=== PATIENT | male | born 1935 | race Caucasian/White ===

== ENCOUNTER 2017-02-09 16:08 | Inpatient (IN) | payer MEDICARE, OTHER ==
[~2017-02-09 16:08] MED LIST: AMARYL4 M1 PO; BIOTENE SSP; COZAAR100 M1 PO; FLOMAX0.4 M1 PO; LOVASTATIN20 M2 PO; LOW DOSE ASPIRI81 M3 PO; MULTIVITAMINS1 EAC6 PO; NORVASC10 M2 PO; PRILOSEC20 M1 PO; TYLENOL EXTRA500 M1 PO; ZYLOPRIM300 M1 PO
[2017-02-09 19:05] LABS: BASO % 0.1 % (0-2); HGB-HEMOGLOBIN 12.2 gm/dl (13.5-17.0); IMMATURE GRANULOCYTES ABSOLUTE 0.04 tho/cmm (0-0.03); IMMATURE GRANULOCYTES PERCENT 0.4 % (0-0.3); LYMPH % 4.4 % (20-45); LYMPH ABSOLUTE COUNT 0.5 tho/cmm (0.8-4.5); MCH (MEAN CORPUSCULAR HGB) 29.3 pg (28.0-32.0); MCV (MEAN CELL VOLUME) 88.9 fl (82.0-96.0); MEAN PLATELET VOLUME 10.5 cmc (9.4-12.4); MONO % 5.8 % (0-12); MONOCYTE ABSOLUTE COUNT 0.6 tho/cmm (0.0-1.2); NEUTROPHILS % 89.3 % (40-80); PLATELET COUNT 131 tho/cmm (150-450); RED BLOOD COUNT 4.16 mil/cmm (4.40-5.70); RED CELL DISTRIBUTION WIDTH 13.5 % (12.4-16.4); WHITE BLOOD COUNT 10.1 tho/cmm (4.0-10.0)
[2017-02-09 19:18] LABS: URINE APPEARANCE SL CLOUDY; URINE BILIRUBIN NEGATIVE (NEG); URINE BLOOD LARGE (NEG); URINE COLOR YELLOW; URINE GLUCOSE (UA) NEGATIVE (NEG); URINE KETONE SMALL (NEG); URINE LEUKOCYTE ESTERASE POSITIVE (NEG); URINE NITRITE NEGATIVE (NEG); URINE PROTEIN MODERATE (NEG)
[2017-02-09 19:21] LABS: ALB/GLOB RATIO 0.6 (0.8-2.0); ALBUMIN 2.8 g/dl (3.5-5.0); ALKALINE PHOSPHATASE 89 U/L (33-138); ALT/SGPT 32 U/L (12-78); ANION GAP 16 mmol/L (0-20); AST/SGOT 30 U/L (10-40); BILIRUBIN,TOTAL 0.5 mg/dl (0.0-1.5); BLOOD UREA NITROGEN 37 mg/dl (6-24); CALCIUM 9.2 mg/dl (8.5-10.5); CARBON DIOXIDE-VENOUS 27 mmol/L (22-32); CHLORIDE 95 mmol/l (96-110); CREATININE 1.89 mg/dl (0.60-1.30); GLUCOSE 299 mg/dL (70-110); LIPASE 108 U/L (73-393); POTASSIUM 4.6 mmol/L (3.7-5.1); SODIUM 133 mmol/L (135-145); eGFR VALUE FOR BLACK 38 mL/Min
[2017-02-09 19:28] LABS: URINE WBC 30-40 /[HPF] (0-5)
[2017-02-09] MEDS ORDERED: ALPRAZOLAM0.5 M3 PO (20:24)
[2017-02-09] MEDS ORDERED: HYDROCODON-ACE1 EA16 PO (20:25)
[2017-02-09] MEDS ORDERED: AMOXICILLIN500 M1 PO (20:25)
[2017-02-09] MEDS ORDERED: MUCINEX600 M1 PO (20:25)
[2017-02-09] MEDS ORDERED: MIRALAX17 G2 PO (20:26)
[2017-02-09] MEDS ORDERED: GAVISCON ES TA1 EACH PO (20:28)
--- NOTE | 2017-02-09 22:50 | NUR ---
VIRTUAL CARE NOTE: VS MACHINE ALARMING HR APPEARS IN 140'S, PT. RESP 32-34 AFTER USING THE RESTROOM PRIOR. O2 SAT 85- 87% ROOM AIR. ON UNIT NOTIFIED AND THIS NURSE HELPS EVALUATE PT. CAMPUS AIDE CALLED AT [phone] SEE RAPID RESPONSE SHEET. 2259 M. MERCEDEZ TESFAYE NOTIFED OF PT. JUST BEING ADMITTED AND UP TO THE BR PRIOR AND CURRENT VS. O2 IN PROCESS OF BEING APPLIED . ORDERS RECEIVED INFORMATION GIVEN OF LUNG SOUND DIMINISHED BY RESP STAFF GIVEN. WILL CONTINUE TO MONITOR.
[2017-02-09 23:05] LABS: ABG CO2 ARTERIAL 22 mmol/L (21-27); ARTERIAL BLD GAS O2 SATURATION 93 % (95-98); ARTERIAL BLOOD GAS PCO2 33 mmHg (32-45); ARTERIAL PO2 73 mmHg (70-100); BICARBONATE 21 mmol/L (21-28); BLOOD GAS BASE EXCESS -3 mM/L (-/+3); PH 7.42 Units (7.35-7.45)
[2017-02-09 23:12] LABS: BASO % 0.1 % (0-2); HCT-HEMATOCRIT 35.4 % (36.0-53.5); HGB-HEMOGLOBIN 11.6 gm/dl (13.5-17.0); IMMATURE GRANULOCYTES ABSOLUTE 0.04 tho/cmm (0-0.03); IMMATURE GRANULOCYTES PERCENT 0.4 % (0-0.3); LYMPH % 4.9 % (20-45); LYMPH ABSOLUTE COUNT 0.5 tho/cmm (0.8-4.5); MCH (MEAN CORPUSCULAR HGB) 29.5 pg (28.0-32.0); MCHC MEAN CORPUSCULAR HGB CONC 32.8 % (32.0-36.0); MCV (MEAN CELL VOLUME) 90.1 fl (82.0-96.0); MEAN PLATELET VOLUME 11.4 cmc (9.4-12.4); MONO % 7.7 % (0-12); MONOCYTE ABSOLUTE COUNT 0.8 tho/cmm (0.0-1.2); NEUTROPHIL ABSOLUTE COUNT 9.4 tho/cmm (1.6-8.0); NEUTROPHIL-AUTOMATED 9.4 tho/cmm (1.6-8.0); NEUTROPHILS % 86.9 % (40-80); PLATELET COUNT 137 tho/cmm (150-450); RED BLOOD COUNT 3.93 mil/cmm (4.40-5.70); RED CELL DISTRIBUTION WIDTH 13.6 % (12.4-16.4); WHITE BLOOD COUNT 10.8 tho/cmm (4.0-10.0)
[2017-02-09 23:27] LABS: ALB/GLOB RATIO 0.6 (0.8-2.0); ALBUMIN 2.8 g/dl (3.5-5.0); ALKALINE PHOSPHATASE 90 U/L (33-138); ALT/SGPT 31 U/L (12-78); ANION GAP 19 mmol/L (0-20); AST/SGOT 32 U/L (10-40); BILIRUBIN,TOTAL 0.5 mg/dl (0.0-1.5); BLOOD UREA NITROGEN 38 mg/dl (6-24); CALCIUM 8.8 mg/dl (8.5-10.5); CARBON DIOXIDE-VENOUS 25 mmol/L (22-32); CHLORIDE 96 mmol/l (96-110); GLUCOSE 265 mg/dL (70-110); POTASSIUM 4.6 mmol/L (3.7-5.1); SODIUM 135 mmol/L (135-145); eGFR VALUE FOR BLACK 38 mL/Min
[2017-02-09 23:38] LABS: AMYLASE 14 U/L (20-90); LIPASE 119 U/L (73-393)
[2017-02-09 23:39] LABS: INR 1.4 INR (0.9-1.1); PROTHROMBIN TIME 16.1 SECONDS (9.0-13.6)
[2017-02-10 00:07] LABS: IRON 17 ug/dl (49-181); IRON BINDING CAPACITY 282 ug/dl (250-450)
[2017-02-10 00:26] LABS: FERRITIN 183 ng/ml (22-388); PROCALCITONIN 12.21 ng/ml (0.05-0.09)
[2017-02-10 04:56] LABS: INR 1.5 INR (0.9-1.1); PROTHROMBIN TIME 17.6 SECONDS (9.0-13.6)
[2017-02-10 05:02] LABS: BASO % 0.1 % (0-2); HCT-HEMATOCRIT 33.1 % (36.0-53.5); HGB-HEMOGLOBIN 10.9 gm/dl (13.5-17.0); IMMATURE GRANULOCYTES ABSOLUTE 0.04 tho/cmm (0-0.03); IMMATURE GRANULOCYTES PERCENT 0.3 % (0-0.3); LYMPH % 2.7 % (20-45); LYMPH ABSOLUTE COUNT 0.3 tho/cmm (0.8-4.5); MCH (MEAN CORPUSCULAR HGB) 29.3 pg (28.0-32.0); MCHC MEAN CORPUSCULAR HGB CONC 32.9 % (32.0-36.0); MEAN PLATELET VOLUME 11.3 cmc (9.4-12.4); MONO % 9.9 % (0-12); MONOCYTE ABSOLUTE COUNT 1.3 tho/cmm (0.0-1.2); NEUTROPHIL ABSOLUTE COUNT 11.1 tho/cmm (1.6-8.0); NEUTROPHIL-AUTOMATED 11.1 tho/cmm (1.6-8.0); PLATELET COUNT 135 tho/cmm (150-450); RED BLOOD COUNT 3.72 mil/cmm (4.40-5.70); RED CELL DISTRIBUTION WIDTH 13.6 % (12.4-16.4); WHITE BLOOD COUNT 12.8 tho/cmm (4.0-10.0)
[2017-02-10 05:09] LABS: ALB/GLOB RATIO 0.6 (0.8-2.0); ALBUMIN 2.7 g/dl (3.5-5.0); ALKALINE PHOSPHATASE 85 U/L (33-138); ANION GAP 18 mmol/L (0-20); BILIRUBIN,TOTAL 0.6 mg/dl (0.0-1.5); BLOOD UREA NITROGEN 45 mg/dl (6-24); CALCIUM 8.4 mg/dl (8.5-10.5); CARBON DIOXIDE-VENOUS 24 mmol/L (22-32); CHLORIDE 98 mmol/l (96-110); CREATININE 2.11 mg/dl (0.60-1.30); GLUCOSE 285 mg/dL (70-110); PARTIAL THROMBOPLASTIN TIME 58 SECONDS (22-36); POTASSIUM 4.5 mmol/L (3.7-5.1); SODIUM 135 mmol/L (135-145); eGFR VALUE FOR BLACK 33 mL/Min
[2017-02-10 05:13] LABS: TSH-THYROID STIMULATING HORM. 1.32 uIU/ml (0.40-3.80)
[2017-02-10 05:27] LABS: ALT/SGPT 144 U/L (12-78); AST/SGOT 278 U/L (10-40)
[2017-02-10 10:07] LABS: OSMOLALITY 298 mOsm/kg (275-295)
[2017-02-10 11:06] LABS: BASO % 0.1 % (0-2); HGB-HEMOGLOBIN 10.7 gm/dl (13.5-17.0); IMMATURE GRANULOCYTES ABSOLUTE 0.04 tho/cmm (0-0.03); IMMATURE GRANULOCYTES PERCENT 0.4 % (0-0.3); LYMPH % 3.3 % (20-45); LYMPH ABSOLUTE COUNT 0.4 tho/cmm (0.8-4.5); MCH (MEAN CORPUSCULAR HGB) 29.7 pg (28.0-32.0); MCHC MEAN CORPUSCULAR HGB CONC 33.4 % (32.0-36.0); MCV (MEAN CELL VOLUME) 88.9 fl (82.0-96.0); MEAN PLATELET VOLUME 11.6 cmc (9.4-12.4); MONO % 9.7 % (0-12); MONOCYTE ABSOLUTE COUNT 1.1 tho/cmm (0.0-1.2); NEUTROPHIL ABSOLUTE COUNT 9.5 tho/cmm (1.6-8.0); NEUTROPHIL-AUTOMATED 9.5 tho/cmm (1.6-8.0); NEUTROPHILS % 86.5 % (40-80); PLATELET COUNT 143 tho/cmm (150-450); RED CELL DISTRIBUTION WIDTH 13.5 % (12.4-16.4)
[2017-02-10 11:27] LABS: ANION GAP 20 mmol/L (0-20); BLOOD UREA NITROGEN 48 mg/dl (6-24); CALCIUM 8.8 mg/dl (8.5-10.5); CARBON DIOXIDE-VENOUS 23 mmol/L (22-32); CHLORIDE 96 mmol/l (96-110); CREATININE 2.46 mg/dl (0.60-1.30); GLUCOSE 229 mg/dL (70-110); POTASSIUM 4.6 mmol/L (3.7-5.1); SODIUM 134 mmol/L (135-145); eGFR VALUE FOR BLACK 28 mL/Min
[2017-02-10 11:34] LABS: ABG CO2 ARTERIAL 17 mmol/L (21-27); ARTERIAL BLD GAS O2 SATURATION 97 % (95-98); ARTERIAL BLOOD GAS PCO2 23 mmHg (32-45); ARTERIAL PO2 94 mmHg (70-100); BICARBONATE 17 mmol/L (21-28); BLOOD GAS BASE EXCESS -6 mM/L (-/+3); PH 7.46 Units (7.35-7.45)
[2017-02-10 13:19] LABS: ABG CO2 ARTERIAL 20 mmol/L (21-27); ARTERIAL BLD GAS O2 SATURATION 89 % (95-98); ARTERIAL BLOOD GAS PCO2 41 mmHg (32-45); ARTERIAL PO2 71 mmHg (70-100); BICARBONATE 19 mmol/L (21-28); BLOOD GAS BASE EXCESS -7 mM/L (-/+3); PH 7.28 Units (7.35-7.45)
[2017-02-10] MEDS ORDERED: METFORMIN HCL500 M3 PO (13:25)
[2017-02-10 13:55] LABS: HCT-HEMATOCRIT 36.5 % (36.0-53.5); HGB-HEMOGLOBIN 11.9 gm/dl (13.5-17.0); MCV (MEAN CELL VOLUME) 89.9 fl (82.0-96.0); RED CELL DISTRIBUTION WIDTH 13.6 % (12.4-16.4)
[2017-02-10 15:55] LABS: INR 1.6 INR (0.9-1.1); PROTHROMBIN TIME 18.9 SECONDS (9.0-13.6)
[2017-02-10 16:01] LABS: ALB/GLOB RATIO 0.6 (0.8-2.0); ALBUMIN 2.6 g/dl (3.5-5.0); ALKALINE PHOSPHATASE 107 U/L (33-138); ANION GAP 19 mmol/L (0-20); BLOOD UREA NITROGEN 56 mg/dl (6-24); CALCIUM 8.3 mg/dl (8.5-10.5); CARBON DIOXIDE-VENOUS 24 mmol/L (22-32); CHLORIDE 93 mmol/l (96-110); CREATININE 2.81 mg/dl (0.60-1.30); PHOSPHOROUS 6.2 mg/dl (2.5-4.9); POTASSIUM 4.7 mmol/L (3.7-5.1); SODIUM 131 mmol/L (135-145); eGFR VALUE FOR BLACK 24 mL/Min
[2017-02-10 16:06] LABS: BILIRUBIN,TOTAL 1.3 mg/dl (0.0-1.5); GLUCOSE 382 mg/dL (70-110)
[2017-02-10 16:11] LABS: ALT/SGPT 1846 U/L (12-78); AST/SGOT 3978 U/L (10-40)
[2017-02-11 04:31] LABS: BASO % 0.2 % (0-2); HCT-HEMATOCRIT 38.1 % (36.0-53.5); HGB-HEMOGLOBIN 12.9 gm/dl (13.5-17.0); IMMATURE GRANULOCYTES ABSOLUTE 0.08 tho/cmm (0-0.03); IMMATURE GRANULOCYTES PERCENT 0.6 % (0-0.3); LYMPH % 6.4 % (20-45); LYMPH ABSOLUTE COUNT 0.8 tho/cmm (0.8-4.5); MCH (MEAN CORPUSCULAR HGB) 29.3 pg (28.0-32.0); MCHC MEAN CORPUSCULAR HGB CONC 33.9 % (32.0-36.0); MCV (MEAN CELL VOLUME) 86.6 fl (82.0-96.0); MEAN PLATELET VOLUME 11.8 cmc (9.4-12.4); MONO % 6.3 % (0-12); MONOCYTE ABSOLUTE COUNT 0.8 tho/cmm (0.0-1.2); NEUTROPHIL ABSOLUTE COUNT 11.2 tho/cmm (1.6-8.0); NEUTROPHIL-AUTOMATED 11.2 tho/cmm (1.6-8.0); NEUTROPHILS % 86.5 % (40-80); PLATELET COUNT 208 tho/cmm (150-450); RED CELL DISTRIBUTION WIDTH 13.4 % (12.4-16.4); WHITE BLOOD COUNT 12.9 tho/cmm (4.0-10.0)
[2017-02-11 04:43] LABS: ALB/GLOB RATIO 0.5 (0.8-2.0); ALBUMIN 2.2 g/dl (3.5-5.0); ALKALINE PHOSPHATASE 100 U/L (33-138); ANION GAP 23 mmol/L (0-20); BILIRUBIN,TOTAL 1.2 mg/dl (0.0-1.5); BLOOD UREA NITROGEN 70 mg/dl (6-24); CARBON DIOXIDE-VENOUS 20 mmol/L (22-32); CHLORIDE 94 mmol/l (96-110); POTASSIUM 4.9 mmol/L (3.7-5.1); SODIUM 132 mmol/L (135-145); eGFR VALUE FOR BLACK 15 mL/Min
[2017-02-11 05:29] LABS: CREATININE 4.03 mg/dl (0.60-1.30); GLUCOSE 141 mg/dL (70-110)
[2017-02-11 05:31] LABS: ALT/SGPT 2806 U/L (12-78); AST/SGOT 6259 U/L (10-40)
[2017-02-11 06:15] LABS: ABG CO2 ARTERIAL 19 mmol/L (21-27); ARTERIAL BLD GAS O2 SATURATION 97 % (95-98); BICARBONATE 18 mmol/L (21-28); BLOOD GAS BASE EXCESS -6 mM/L (-/+3); PH 7.38 Units (7.35-7.45)
[2017-02-11 06:16] LABS: ARTERIAL BLOOD GAS PCO2 32 mmHg (32-45); ARTERIAL PO2 117 mmHg (70-100)
[2017-02-11 15:22] LABS: BICARBONATE 20 mmol/L (21-28); BLOOD GAS BASE EXCESS -5 mM/L (-/+3); CARBON DIOXIDE-VENOUS 22 mmol/L (23-30); MIXED VENOUS O2 SATURATION 47 % (60-80); PH 7.32 Units (7.35-7.45)
[2017-02-12 04:42] LABS: BICARBONATE 18 mmol/L (21-28); BLOOD GAS BASE EXCESS -8 mM/L (-/+3); CARBON DIOXIDE-VENOUS 20 mmol/L (23-30); MIXED VENOUS O2 SATURATION 55 % (60-80); PH 7.27 Units (7.35-7.45)
[2017-02-12 04:46] LABS: BASO % 0.2 % (0-2); EOS % 0.2 % (0-7); HCT-HEMATOCRIT 35.3 % (36.0-53.5); HGB-HEMOGLOBIN 12.1 gm/dl (13.5-17.0); IMMATURE GRANULOCYTES ABSOLUTE 0.07 tho/cmm (0-0.03); IMMATURE GRANULOCYTES PERCENT 0.6 % (0-0.3); LYMPH % 5.7 % (20-45); LYMPH ABSOLUTE COUNT 0.7 tho/cmm (0.8-4.5); MCH (MEAN CORPUSCULAR HGB) 29.1 pg (28.0-32.0); MCHC MEAN CORPUSCULAR HGB CONC 34.3 % (32.0-36.0); MCV (MEAN CELL VOLUME) 84.9 fl (82.0-96.0); MEAN PLATELET VOLUME 11.6 cmc (9.4-12.4); MONO % 5.4 % (0-12); MONOCYTE ABSOLUTE COUNT 0.7 tho/cmm (0.0-1.2); NEUTROPHIL ABSOLUTE COUNT 10.6 tho/cmm (1.6-8.0); NEUTROPHIL-AUTOMATED 10.6 tho/cmm (1.6-8.0); NEUTROPHILS % 87.9 % (40-80); PLATELET COUNT 172 tho/cmm (150-450); RED BLOOD COUNT 4.16 mil/cmm (4.40-5.70); RED CELL DISTRIBUTION WIDTH 13.4 % (12.4-16.4)
[2017-02-12 05:05] LABS: PROTHROMBIN TIME 23.3 SECONDS (9.0-13.6)
[2017-02-12 05:08] LABS: ALB/GLOB RATIO 0.6 (0.8-2.0); ALBUMIN 2.4 g/dl (3.5-5.0); ALKALINE PHOSPHATASE 106 U/L (33-138); ANION GAP 23 mmol/L (0-20); BILIRUBIN,TOTAL 1.3 mg/dl (0.0-1.5); BLOOD UREA NITROGEN 97 mg/dl (6-24); CALCIUM 7.2 mg/dl (8.5-10.5); CARBON DIOXIDE-VENOUS 18 mmol/L (22-32); CHLORIDE 93 mmol/l (96-110); GLUCOSE 174 mg/dL (70-110); MAGNESIUM 2.3 mg/dl (1.8-2.6); POTASSIUM 4.3 mmol/L (3.7-5.1); SODIUM 130 mmol/L (135-145)
[2017-02-12 05:19] LABS: ALT/SGPT 3368 U/L (12-78); AST/SGOT 3563 U/L (10-40); CREATININE 5.74 mg/dl (0.60-1.30); eGFR VALUE FOR BLACK 10 mL/Min
[2017-02-12 05:39] LABS: ABG CO2 ARTERIAL 17 mmol/L (21-27); ARTERIAL BLD GAS O2 SATURATION 96 % (95-98); ARTERIAL BLOOD GAS PCO2 32 mmHg (32-45); BICARBONATE 16 mmol/L (21-28); BLOOD GAS BASE EXCESS -9 mM/L (-/+3); PH 7.32 Units (7.35-7.45)
[2017-02-12 05:40] LABS: ARTERIAL PO2 101 mmHg (70-100)
[2017-02-12 06:39] LABS: PROCALCITONIN 35.18 ng/ml (0.05-0.09)
[2017-02-12 13:25] LABS: BASO % 0.1 % (0-2); EOS % 0.1 % (0-7); HCT-HEMATOCRIT 34.9 % (36.0-53.5); HGB-HEMOGLOBIN 12.3 gm/dl (13.5-17.0); IMMATURE GRANULOCYTES ABSOLUTE 0.14 tho/cmm (0-0.03); LYMPH % 5.5 % (20-45); LYMPH ABSOLUTE COUNT 0.8 tho/cmm (0.8-4.5); MCH (MEAN CORPUSCULAR HGB) 29.6 pg (28.0-32.0); MCHC MEAN CORPUSCULAR HGB CONC 35.2 % (32.0-36.0); MCV (MEAN CELL VOLUME) 84.1 fl (82.0-96.0); MEAN PLATELET VOLUME 11.2 cmc (9.4-12.4); MONO % 4.2 % (0-12); MONOCYTE ABSOLUTE COUNT 0.6 tho/cmm (0.0-1.2); NEUTROPHIL ABSOLUTE COUNT 13.1 tho/cmm (1.6-8.0); NEUTROPHIL-AUTOMATED 13.1 tho/cmm (1.6-8.0); NEUTROPHILS % 89.1 % (40-80); PLATELET COUNT 170 tho/cmm (150-450); RED BLOOD COUNT 4.15 mil/cmm (4.40-5.70); RED CELL DISTRIBUTION WIDTH 13.4 % (12.4-16.4); WHITE BLOOD COUNT 14.7 tho/cmm (4.0-10.0)
[2017-02-12 13:32] LABS: INR 1.9 INR (0.9-1.1); PROTHROMBIN TIME 22.7 SECONDS (9.0-13.6)
[2017-02-12 13:47] LABS: ALB/GLOB RATIO 0.6 (0.8-2.0); ALBUMIN 2.3 g/dl (3.5-5.0); ALKALINE PHOSPHATASE 106 U/L (33-138); ANION GAP 25 mmol/L (0-20); BILIRUBIN,DIRECT 0.8 mg/dl (0.0-0.3); BILIRUBIN,INDIRECT 0.4 mg/dL (0.0-1.0); BILIRUBIN,TOTAL 1.2 mg/dl (0.0-1.5); BLOOD UREA NITROGEN 101 mg/dl (6-24); CARBON DIOXIDE-VENOUS 17 mmol/L (22-32); CHLORIDE 93 mmol/l (96-110); CREATININE 6.24 mg/dl (0.60-1.30); GLUCOSE 176 mg/dL (70-110); MAGNESIUM 2.2 mg/dl (1.8-2.6); PHOSPHOROUS 8.5 mg/dl (2.5-4.9); POTASSIUM 4.2 mmol/L (3.7-5.1); SODIUM 131 mmol/L (135-145); eGFR VALUE FOR BLACK 9 mL/Min
[2017-02-12 13:49] LABS: ALT/SGPT 2850 U/L (12-78); AST/SGOT 1915 U/L (10-40)
[2017-02-12 14:30] LABS: ABG CO2 ARTERIAL 18 mmol/L (21-27); ARTERIAL BLD GAS O2 SATURATION 97 % (95-98); ARTERIAL BLOOD GAS PCO2 32 mmHg (32-45); ARTERIAL PO2 124 mmHg (70-100); BICARBONATE 17 mmol/L (21-28); BLOOD GAS BASE EXCESS -8 mM/L (-/+3); PH 7.34 Units (7.35-7.45)
[2017-02-12 16:55] LABS: PH 7.32 Units (7.35-7.45)
--- NOTE | 2017-02-12 19:00 | NUR ---
0700 DR. FELICIANO HERE, GIVEN CONDITION UPDATE AND ORDERS RECIEVED. DR. FELICIANO SPEAKS WITH . PT. REMAINS SEDATED ON VERSED. IABP @ 1:1 COUNTERPULSATION. RT. FEMORAL IABP AND PA CATHETER INTACT, GROIN WITHOUT BRUISING OR HEMATOMA. SMALL AMT. RED DRAINAGE ON DRESSING. 0900 DR[address] ABBOTT AND DR. CAPELLAN HERE, ORDERS RECIEVED. 1100 LATHE MACHINE OPERATOR AND TECH HERE, DR. ABBOTT HERE TO PALCE LEFT FEMORAL TEMPORARY HEMODIALYSIS CATHETER. [address] LEFT FEMORAL WITHOUT BLEEDING. 1330 DIALYSIS NURSE HERE TO SET UP CRRT. VASCULAR BUYER GRAIN HERE TO PLACE CENTRAL LINE. 1430 PICC PLACED. VS STABLE. HAS RUNS OF ABERRANT AFIB VS VT. DR. MARIN NOTIFIED AND AMIODARONE DRIP INCREASED TO 1MG/MIN. 1440 CRRT STARTED. TOLERATES WELL WITHOUT CHANGE IN VS. 1600 BP STABLE, WILL START TO WEAN LEVOPHED ORDERED. IABP REMAINS 1:1 WITH GOOD AUGMENTATION.
[2017-02-12 20:07] LABS: ANION GAP 20 mmol/L (0-20); BLOOD UREA NITROGEN 72 mg/dl (6-24); CALCIUM 6.8 mg/dl (8.5-10.5); CARBON DIOXIDE-VENOUS 21 mmol/L (22-32); CHLORIDE 96 mmol/l (96-110); GLUCOSE 169 mg/dL (70-110); MAGNESIUM 2.1 mg/dl (1.8-2.6); POTASSIUM 3.6 mmol/L (3.7-5.1); SODIUM 133 mmol/L (135-145)
[2017-02-12 20:20] LABS: CREATININE 4.47 mg/dl (0.60-1.30); PHOSPHOROUS 4.9 mg/dl (2.5-4.9); eGFR VALUE FOR BLACK 14 mL/Min
[2017-02-12 21:14] LABS: ABG CO2 ARTERIAL 21 mmol/L (21-27); ARTERIAL BLD GAS O2 SATURATION 97 % (95-98); ARTERIAL BLOOD GAS PCO2 35 mmHg (32-45); BICARBONATE 20 mmol/L (21-28); BLOOD GAS BASE EXCESS -4 mM/L (-/+3); PH 7.38 Units (7.35-7.45)
[2017-02-12 21:15] LABS: ARTERIAL PO2 109 mmHg (70-100)
[2017-02-13 02:07] LABS: ANION GAP 19 mmol/L (0-20); BLOOD UREA NITROGEN 56 mg/dl (6-24); CALCIUM 7.4 mg/dl (8.5-10.5); CARBON DIOXIDE-VENOUS 21 mmol/L (22-32); CHLORIDE 98 mmol/l (96-110); CREATININE 3.58 mg/dl (0.60-1.30); GLUCOSE 188 mg/dL (70-110); MAGNESIUM 1.9 mg/dl (1.8-2.6); PHOSPHOROUS 3.8 mg/dl (2.5-4.9); POTASSIUM 3.7 mmol/L (3.7-5.1); SODIUM 134 mmol/L (135-145); eGFR VALUE FOR BLACK 18 mL/Min
[2017-02-13 02:10] LABS: ABG CO2 ARTERIAL 21 mmol/L (21-27); ARTERIAL BLD GAS O2 SATURATION 98 % (95-98); ARTERIAL BLOOD GAS PCO2 33 mmHg (32-45); BICARBONATE 20 mmol/L (21-28); BLOOD GAS BASE EXCESS -3 mM/L (-/+3)
[2017-02-13 02:14] LABS: ARTERIAL PO2 139 mmHg (70-100)
[2017-02-13 02:22] LABS: BASO % 0.1 % (0-2); EOS % 0.3 % (0-7); HCT-HEMATOCRIT 34.5 % (36.0-53.5); HGB-HEMOGLOBIN 12.1 gm/dl (13.5-17.0); IMMATURE GRANULOCYTES ABSOLUTE 0.08 tho/cmm (0-0.03); IMMATURE GRANULOCYTES PERCENT 0.6 % (0-0.3); LYMPH % 3.6 % (20-45); LYMPH ABSOLUTE COUNT 0.5 tho/cmm (0.8-4.5); MCH (MEAN CORPUSCULAR HGB) 29.2 pg (28.0-32.0); MCHC MEAN CORPUSCULAR HGB CONC 35.1 % (32.0-36.0); MCV (MEAN CELL VOLUME) 83.3 fl (82.0-96.0); MEAN PLATELET VOLUME 11.3 cmc (9.4-12.4); MONO % 3.8 % (0-12); MONOCYTE ABSOLUTE COUNT 0.5 tho/cmm (0.0-1.2); NEUTROPHIL ABSOLUTE COUNT 12.4 tho/cmm (1.6-8.0); NEUTROPHIL-AUTOMATED 12.4 tho/cmm (1.6-8.0); NEUTROPHILS % 91.6 % (40-80); PLATELET COUNT 148 tho/cmm (150-450); RED BLOOD COUNT 4.14 mil/cmm (4.40-5.70); RED CELL DISTRIBUTION WIDTH 13.2 % (12.4-16.4); WHITE BLOOD COUNT 13.5 tho/cmm (4.0-10.0)
[2017-02-13 04:48] LABS: BASO % 0.1 % (0-2); EOS % 0.1 % (0-7); HCT-HEMATOCRIT 34.8 % (36.0-53.5); HGB-HEMOGLOBIN 11.9 gm/dl (13.5-17.0); IMMATURE GRANULOCYTES ABSOLUTE 0.12 tho/cmm (0-0.03); IMMATURE GRANULOCYTES PERCENT 0.8 % (0-0.3); LYMPH % 2.1 % (20-45); LYMPH ABSOLUTE COUNT 0.3 tho/cmm (0.8-4.5); MCH (MEAN CORPUSCULAR HGB) 28.8 pg (28.0-32.0); MCHC MEAN CORPUSCULAR HGB CONC 34.2 % (32.0-36.0); MCV (MEAN CELL VOLUME) 84.3 fl (82.0-96.0); MEAN PLATELET VOLUME 10.9 cmc (9.4-12.4); MONO % 3.6 % (0-12); MONOCYTE ABSOLUTE COUNT 0.5 tho/cmm (0.0-1.2); NEUTROPHIL ABSOLUTE COUNT 13.3 tho/cmm (1.6-8.0); NEUTROPHIL-AUTOMATED 13.3 tho/cmm (1.6-8.0); NEUTROPHILS % 93.3 % (40-80); PLATELET COUNT 144 tho/cmm (150-450); RED BLOOD COUNT 4.13 mil/cmm (4.40-5.70); RED CELL DISTRIBUTION WIDTH 13.3 % (12.4-16.4); WHITE BLOOD COUNT 14.3 tho/cmm (4.0-10.0)
[2017-02-13 04:50] LABS: INR 1.8 INR (0.9-1.1); PROTHROMBIN TIME 21.3 SECONDS (9.0-13.6)
[2017-02-13 05:01] LABS: BICARBONATE 22 mmol/L (21-28); BLOOD GAS BASE EXCESS -2 mM/L (-/+3); CARBON DIOXIDE-VENOUS 24 mmol/L (23-30); MIXED VENOUS O2 SATURATION 73 % (60-80); PH 7.37 Units (7.35-7.45)
[2017-02-13 05:05] LABS: ALB/GLOB RATIO 0.5 (0.8-2.0); ALKALINE PHOSPHATASE 105 U/L (33-138); ANION GAP 17 mmol/L (0-20); BILIRUBIN,TOTAL 1.3 mg/dl (0.0-1.5); BLOOD UREA NITROGEN 56 mg/dl (6-24); CALCIUM 7.4 mg/dl (8.5-10.5); CARBON DIOXIDE-VENOUS 23 mmol/L (22-32); CHLORIDE 97 mmol/l (96-110); CREATININE 3.86 mg/dl (0.60-1.30); GLUCOSE 172 mg/dL (70-110); MAGNESIUM 2.1 mg/dl (1.8-2.6); PHOSPHOROUS 3.9 mg/dl (2.5-4.9); POTASSIUM 3.9 mmol/L (3.7-5.1); SODIUM 133 mmol/L (135-145); eGFR VALUE FOR BLACK 16 mL/Min
[2017-02-13 05:19] LABS: ALT/SGPT 2007 U/L (12-78); AST/SGOT 853 U/L (10-40)
[2017-02-13 06:02] LABS: ABG CO2 ARTERIAL 20 mmol/L (21-27); ARTERIAL BLD GAS O2 SATURATION 99 % (95-98); ARTERIAL BLOOD GAS PCO2 28 mmHg (32-45); BICARBONATE 19 mmol/L (21-28); BLOOD GAS BASE EXCESS -4 mM/L (-/+3); PH 7.45 Units (7.35-7.45)
[2017-02-13 06:03] LABS: ARTERIAL PO2 170 mmHg (70-100)
[2017-02-13 07:17] LABS: ANION GAP 15 mmol/L (0-20); BLOOD UREA NITROGEN 47 mg/dl (6-24); CALCIUM 7.6 mg/dl (8.5-10.5); CARBON DIOXIDE-VENOUS 25 mmol/L (22-32); CHLORIDE 99 mmol/l (96-110); CREATININE 3.34 mg/dl (0.60-1.30); GLUCOSE 144 mg/dL (70-110); PHOSPHOROUS 3.3 mg/dl (2.5-4.9); POTASSIUM 3.8 mmol/L (3.7-5.1); SODIUM 135 mmol/L (135-145); eGFR VALUE FOR BLACK 19 mL/Min
[2017-02-13 07:17] LABS: ABG CO2 ARTERIAL 23 mmol/L (21-27); ARTERIAL BLD GAS O2 SATURATION 99 % (95-98); ARTERIAL BLOOD GAS PCO2 36 mmHg (32-45); BICARBONATE 22 mmol/L (21-28); BLOOD GAS BASE EXCESS -2 mM/L (-/+3)
[2017-02-13 07:21] LABS: ARTERIAL PO2 222 mmHg (70-100)
[2017-02-13 13:15] LABS: ABG CO2 ARTERIAL 24 mmol/L (21-27); ARTERIAL BLD GAS O2 SATURATION 96 % (95-98); ARTERIAL BLOOD GAS PCO2 37 mmHg (32-45); ARTERIAL PO2 87 mmHg (70-100); BICARBONATE 23 mmol/L (21-28); BLOOD GAS BASE EXCESS -1 mM/L (-/+3); PH 7.41 Units (7.35-7.45)
[2017-02-13 13:20] LABS: BASO % 0.1 % (0-2); EOS % 0.1 % (0-7); HCT-HEMATOCRIT 34.3 % (36.0-53.5); HGB-HEMOGLOBIN 11.6 gm/dl (13.5-17.0); IMMATURE GRANULOCYTES ABSOLUTE 0.11 tho/cmm (0-0.03); IMMATURE GRANULOCYTES PERCENT 0.8 % (0-0.3); LYMPH % 3.6 % (20-45); LYMPH ABSOLUTE COUNT 0.5 tho/cmm (0.8-4.5); MCH (MEAN CORPUSCULAR HGB) 28.7 pg (28.0-32.0); MCHC MEAN CORPUSCULAR HGB CONC 33.8 % (32.0-36.0); MCV (MEAN CELL VOLUME) 84.9 fl (82.0-96.0); MEAN PLATELET VOLUME 10.7 cmc (9.4-12.4); MONO % 2.9 % (0-12); MONOCYTE ABSOLUTE COUNT 0.4 tho/cmm (0.0-1.2); NEUTROPHIL ABSOLUTE COUNT 12.8 tho/cmm (1.6-8.0); NEUTROPHIL-AUTOMATED 12.8 tho/cmm (1.6-8.0); NEUTROPHILS % 92.5 % (40-80); PLATELET COUNT 130 tho/cmm (150-450); RED BLOOD COUNT 4.04 mil/cmm (4.40-5.70); RED CELL DISTRIBUTION WIDTH 13.4 % (12.4-16.4); WHITE BLOOD COUNT 13.9 tho/cmm (4.0-10.0)
[2017-02-13 13:25] LABS: INR 1.7 INR (0.9-1.1); PROTHROMBIN TIME 20.4 SECONDS (9.0-13.6)
[2017-02-13 13:32] LABS: PARTIAL THROMBOPLASTIN TIME 33 SECONDS (22-36)
[2017-02-13 13:37] LABS: ALB/GLOB RATIO 0.5 (0.8-2.0); ALBUMIN 1.9 g/dl (3.5-5.0); ALKALINE PHOSPHATASE 107 U/L (33-138); ANION GAP 15 mmol/L (0-20); AST/SGOT 594 U/L (10-40); BILIRUBIN,DIRECT 0.8 mg/dl (0.0-0.3); BILIRUBIN,INDIRECT 0.4 mg/dL (0.0-1.0); BILIRUBIN,TOTAL 1.2 mg/dl (0.0-1.5); BLOOD UREA NITROGEN 36 mg/dl (6-24); CALCIUM 7.2 mg/dl (8.5-10.5); CARBON DIOXIDE-VENOUS 26 mmol/L (22-32); CHLORIDE 99 mmol/l (96-110); CREATININE 2.74 mg/dl (0.60-1.30); GLUCOSE 198 mg/dL (70-110); PHOSPHOROUS 2.7 mg/dl (2.5-4.9); POTASSIUM 3.8 mmol/L (3.7-5.1); SODIUM 136 mmol/L (135-145); eGFR VALUE FOR BLACK 24 mL/Min
[2017-02-13 13:41] LABS: ALT/SGPT 1728 U/L (12-78)
[2017-02-13 20:19] LABS: CRRT IONIZED CALCIUM 0.6 mmol/L (0.25-0.35)
[2017-02-13 21:32] LABS: ABG CO2 ARTERIAL 24 mmol/L (21-27); ARTERIAL BLD GAS O2 SATURATION 95 % (95-98); ARTERIAL BLOOD GAS PCO2 34 mmHg (32-45); ARTERIAL PO2 82 mmHg (70-100); BICARBONATE 23 mmol/L (21-28); BLOOD GAS BASE EXCESS -1 mM/L (-/+3); PH 7.44 Units (7.35-7.45)
[2017-02-13 21:45] LABS: ANION GAP 17 mmol/L (0-20); BLOOD UREA NITROGEN 31 mg/dl (6-24); CARBON DIOXIDE-VENOUS 23 mmol/L (22-32); CHLORIDE 100 mmol/l (96-110); CREATININE 2.25 mg/dl (0.60-1.30); GLUCOSE 180 mg/dL (70-110); MAGNESIUM 1.8 mg/dl (1.8-2.6); PHOSPHOROUS 1.6 mg/dl (2.5-4.9); POTASSIUM 3.7 mmol/L (3.7-5.1); SODIUM 136 mmol/L (135-145); eGFR VALUE FOR BLACK 31 mL/Min
[2017-02-13 22:15] LABS: CALCIUM 5.5 mg/dl (8.5-10.5)
[2017-02-14 01:38] LABS: ABG CO2 ARTERIAL 23 mmol/L (21-27); ARTERIAL BLD GAS O2 SATURATION 98 % (95-98); ARTERIAL BLOOD GAS PCO2 35 mmHg (32-45); BICARBONATE 22 mmol/L (21-28); BLOOD GAS BASE EXCESS -1 mM/L (-/+3); PH 7.42 Units (7.35-7.45)
[2017-02-14 01:43] LABS: ARTERIAL PO2 131 mmHg (70-100)
[2017-02-14 01:45] LABS: BASO % 0.1 % (0-2); EOS % 0.5 % (0-7); EOSINOPHIL ABSOLUTE COUNT 0.1 tho/cmm (0.0-0.7); HCT-HEMATOCRIT 32.7 % (36.0-53.5); HGB-HEMOGLOBIN 11.2 gm/dl (13.5-17.0); IMMATURE GRANULOCYTES ABSOLUTE 0.14 tho/cmm (0-0.03); IMMATURE GRANULOCYTES PERCENT 1.1 % (0-0.3); LYMPH % 3.5 % (20-45); LYMPH ABSOLUTE COUNT 0.4 tho/cmm (0.8-4.5); MCH (MEAN CORPUSCULAR HGB) 29.2 pg (28.0-32.0); MCHC MEAN CORPUSCULAR HGB CONC 34.3 % (32.0-36.0); MCV (MEAN CELL VOLUME) 85.2 fl (82.0-96.0); MEAN PLATELET VOLUME 10.9 cmc (9.4-12.4); MONO % 3.2 % (0-12); MONOCYTE ABSOLUTE COUNT 0.4 tho/cmm (0.0-1.2); NEUTROPHIL ABSOLUTE COUNT 11.5 tho/cmm (1.6-8.0); NEUTROPHIL-AUTOMATED 11.5 tho/cmm (1.6-8.0); NEUTROPHILS % 91.6 % (40-80); PLATELET COUNT 139 tho/cmm (150-450); RED BLOOD COUNT 3.84 mil/cmm (4.40-5.70); RED CELL DISTRIBUTION WIDTH 13.5 % (12.4-16.4); WHITE BLOOD COUNT 12.5 tho/cmm (4.0-10.0)
[2017-02-14 01:47] LABS: ANION GAP 17 mmol/L (0-20); BLOOD UREA NITROGEN 27 mg/dl (6-24); CARBON DIOXIDE-VENOUS 23 mmol/L (22-32); CHLORIDE 100 mmol/l (96-110); CREATININE 2.18 mg/dl (0.60-1.30); GLUCOSE 243 mg/dL (70-110); MAGNESIUM 2.1 mg/dl (1.8-2.6); POTASSIUM 3.6 mmol/L (3.7-5.1); SODIUM 136 mmol/L (135-145); eGFR VALUE FOR BLACK 32 mL/Min
[2017-02-14 01:49] LABS: CRRT IONIZED CALCIUM <0.30 mmol/L (0.25-0.35)
[2017-02-14 01:54] LABS: CALCIUM 6.3 mg/dl (8.5-10.5)
[2017-02-14 04:41] LABS: ABG CO2 ARTERIAL 25 mmol/L (21-27); ARTERIAL BLD GAS O2 SATURATION 98 % (95-98); ARTERIAL BLOOD GAS PCO2 38 mmHg (32-45); BICARBONATE 24 mmol/L (21-28); BLOOD GAS BASE EXCESS 0 mM/L (-/+3); PH 7.41 Units (7.35-7.45)
[2017-02-14 04:44] LABS: ARTERIAL PO2 113 mmHg (70-100)
[2017-02-14 04:56] LABS: CRRT IONIZED CALCIUM <0.30 mmol/L (0.25-0.35)
[2017-02-14 05:08] LABS: ANION GAP 16 mmol/L (0-20); BLOOD UREA NITROGEN 25 mg/dl (6-24); CALCIUM 7.2 mg/dl (8.5-10.5); CARBON DIOXIDE-VENOUS 23 mmol/L (22-32); CHLORIDE 100 mmol/l (96-110); GLUCOSE 253 mg/dL (70-110); MAGNESIUM 2.3 mg/dl (1.8-2.6); PHOSPHOROUS 2.5 mg/dl (2.5-4.9); POTASSIUM 3.5 mmol/L (3.7-5.1); SODIUM 135 mmol/L (135-145); eGFR VALUE FOR BLACK 36 mL/Min
[2017-02-14 05:17] LABS: ALB/GLOB RATIO 0.5 (0.8-2.0); ALBUMIN 1.9 g/dl (3.5-5.0); BILIRUBIN,TOTAL 1.1 mg/dl (0.0-1.5)
[2017-02-14 05:22] LABS: BILIRUBIN,DIRECT 0.7 mg/dl (0.0-0.3); BILIRUBIN,INDIRECT 0.4 mg/dL (0.0-1.0)
[2017-02-14 07:40] LABS: CRRT IONIZED CALCIUM 0.36 mmol/L (0.25-0.35)
[2017-02-14 12:16] LABS: ABG CO2 ARTERIAL 26 mmol/L (21-27); ARTERIAL BLD GAS O2 SATURATION 94 % (95-98); ARTERIAL BLOOD GAS PCO2 40 mmHg (32-45); BICARBONATE 25 mmol/L (21-28); BLOOD GAS BASE EXCESS 1 mM/L (-/+3); PH 7.41 Units (7.35-7.45)
[2017-02-14 12:18] LABS: ARTERIAL PO2 75 mmHg (70-100)
[2017-02-14 12:41] LABS: ANION GAP 13 mmol/L (0-20); BLOOD UREA NITROGEN 20 mg/dl (6-24); CALCIUM 8.5 mg/dl (8.5-10.5); CARBON DIOXIDE-VENOUS 25 mmol/L (22-32); CHLORIDE 103 mmol/l (96-110); CREATININE 1.66 mg/dl (0.60-1.30); GLUCOSE 182 mg/dL (70-110); PHOSPHOROUS 2.4 mg/dl (2.5-4.9); POTASSIUM 3.7 mmol/L (3.7-5.1); SODIUM 137 mmol/L (135-145); eGFR VALUE FOR BLACK 45 mL/Min
[2017-02-14 13:25] LABS: BASO % 0.1 % (0-2); EOS % 0.9 % (0-7); EOSINOPHIL ABSOLUTE COUNT 0.1 tho/cmm (0.0-0.7); HCT-HEMATOCRIT 31.8 % (36.0-53.5); HGB-HEMOGLOBIN 10.6 gm/dl (13.5-17.0); IMMATURE GRANULOCYTES ABSOLUTE 0.13 tho/cmm (0-0.03); IMMATURE GRANULOCYTES PERCENT 1.2 % (0-0.3); LYMPH % 4.7 % (20-45); LYMPH ABSOLUTE COUNT 0.5 tho/cmm (0.8-4.5); MCH (MEAN CORPUSCULAR HGB) 28.6 pg (28.0-32.0); MCHC MEAN CORPUSCULAR HGB CONC 33.3 % (32.0-36.0); MCV (MEAN CELL VOLUME) 85.9 fl (82.0-96.0); MEAN PLATELET VOLUME 11.4 cmc (9.4-12.4); MONO % 3.9 % (0-12); MONOCYTE ABSOLUTE COUNT 0.4 tho/cmm (0.0-1.2); NEUTROPHIL ABSOLUTE COUNT 9.5 tho/cmm (1.6-8.0); NEUTROPHIL-AUTOMATED 9.5 tho/cmm (1.6-8.0); NEUTROPHILS % 89.2 % (40-80); PLATELET COUNT 141 tho/cmm (150-450); RED CELL DISTRIBUTION WIDTH 13.8 % (12.4-16.4); WHITE BLOOD COUNT 10.6 tho/cmm (4.0-10.0)
[2017-02-14 17:03] LABS: CRRT IONIZED CALCIUM 0.34 mmol/L (0.25-0.35)
[2017-02-14 20:22] LABS: ABG CO2 ARTERIAL 28 mmol/L (21-27); ARTERIAL BLD GAS O2 SATURATION 85 % (95-98); BICARBONATE 27 mmol/L (21-28); BLOOD GAS BASE EXCESS 1 mM/L (-/+3); PH 7.35 Units (7.35-7.45)
[2017-02-14 20:23] LABS: ARTERIAL BLOOD GAS PCO2 50 mmHg (32-45); ARTERIAL PO2 56 mmHg (70-100)
[2017-02-14 20:31] LABS: CRRT IONIZED CALCIUM 0.37 mmol/L (0.25-0.35)
[2017-02-14 20:35] LABS: ANION GAP 13 mmol/L (0-20); BLOOD UREA NITROGEN 17 mg/dl (6-24); CALCIUM 9.2 mg/dl (8.5-10.5); CARBON DIOXIDE-VENOUS 27 mmol/L (22-32); CHLORIDE 103 mmol/l (96-110); CREATININE 1.46 mg/dl (0.60-1.30); GLUCOSE 144 mg/dL (70-110); MAGNESIUM 1.6 mg/dl (1.8-2.6); PHOSPHOROUS 2.9 mg/dl (2.5-4.9); POTASSIUM 3.8 mmol/L (3.7-5.1); SODIUM 139 mmol/L (135-145); eGFR VALUE FOR BLACK 52 mL/Min
[2017-02-15 00:49] LABS: BASO % 0.1 % (0-2); EOS % 1.5 % (0-7); EOSINOPHIL ABSOLUTE COUNT 0.2 tho/cmm (0.0-0.7); HCT-HEMATOCRIT 31.5 % (36.0-53.5); HGB-HEMOGLOBIN 10.4 gm/dl (13.5-17.0); IMMATURE GRANULOCYTES ABSOLUTE 0.17 tho/cmm (0-0.03); IMMATURE GRANULOCYTES PERCENT 1.5 % (0-0.3); LYMPH % 5.7 % (20-45); LYMPH ABSOLUTE COUNT 0.6 tho/cmm (0.8-4.5); MCH (MEAN CORPUSCULAR HGB) 28.9 pg (28.0-32.0); MCV (MEAN CELL VOLUME) 87.5 fl (82.0-96.0); MEAN PLATELET VOLUME 11.3 cmc (9.4-12.4); MONOCYTE ABSOLUTE COUNT 0.6 tho/cmm (0.0-1.2); NEUTROPHIL ABSOLUTE COUNT 9.6 tho/cmm (1.6-8.0); NEUTROPHIL-AUTOMATED 9.6 tho/cmm (1.6-8.0); NEUTROPHILS % 86.2 % (40-80); PLATELET COUNT 148 tho/cmm (150-450); RED CELL DISTRIBUTION WIDTH 13.9 % (12.4-16.4); WHITE BLOOD COUNT 11.1 tho/cmm (4.0-10.0)
[2017-02-15 02:52] LABS: CRRT IONIZED CALCIUM 0.43 mmol/L (0.25-0.35)
[2017-02-15 04:39] LABS: ABG CO2 ARTERIAL 28 mmol/L (21-27); ARTERIAL BLOOD GAS PCO2 42 mmHg (32-45); BICARBONATE 27 mmol/L (21-28); BLOOD GAS BASE EXCESS 3 mM/L (-/+3); PH 7.42 Units (7.35-7.45)
[2017-02-15 04:40] LABS: ARTERIAL BLD GAS O2 SATURATION 98 % (95-98); ARTERIAL PO2 140 mmHg (70-100); BASO % 0.2 % (0-2); EOS % 1.6 % (0-7); EOSINOPHIL ABSOLUTE COUNT 0.2 tho/cmm (0.0-0.7); HCT-HEMATOCRIT 33.4 % (36.0-53.5); HGB-HEMOGLOBIN 11.1 gm/dl (13.5-17.0); IMMATURE GRANULOCYTES ABSOLUTE 0.21 tho/cmm (0-0.03); IMMATURE GRANULOCYTES PERCENT 1.8 % (0-0.3); LYMPH ABSOLUTE COUNT 0.6 tho/cmm (0.8-4.5); MCH (MEAN CORPUSCULAR HGB) 28.8 pg (28.0-32.0); MCHC MEAN CORPUSCULAR HGB CONC 33.2 % (32.0-36.0); MCV (MEAN CELL VOLUME) 86.8 fl (82.0-96.0); MEAN PLATELET VOLUME 10.8 cmc (9.4-12.4); MONO % 5.1 % (0-12); MONOCYTE ABSOLUTE COUNT 0.6 tho/cmm (0.0-1.2); NEUTROPHIL ABSOLUTE COUNT 10.1 tho/cmm (1.6-8.0); NEUTROPHIL-AUTOMATED 10.1 tho/cmm (1.6-8.0); NEUTROPHILS % 86.3 % (40-80); PLATELET COUNT 154 tho/cmm (150-450); RED BLOOD COUNT 3.85 mil/cmm (4.40-5.70); WHITE BLOOD COUNT 11.7 tho/cmm (4.0-10.0)
[2017-02-15 04:45] LABS: INR 1.4 INR (0.9-1.1)
[2017-02-15 04:55] LABS: ANION GAP 11 mmol/L (0-20); BLOOD UREA NITROGEN 15 mg/dl (6-24); CARBON DIOXIDE-VENOUS 28 mmol/L (22-32); CHLORIDE 100 mmol/l (96-110); CREATININE 1.45 mg/dl (0.60-1.30); GLUCOSE 191 mg/dL (70-110); MAGNESIUM 2.1 mg/dl (1.8-2.6); PHOSPHOROUS 1.8 mg/dl (2.5-4.9); POTASSIUM 3.7 mmol/L (3.7-5.1); SODIUM 135 mmol/L (135-145); eGFR VALUE FOR BLACK 53 mL/Min
[2017-02-15 04:56] LABS: ALB/GLOB RATIO 0.4 (0.8-2.0); ALBUMIN 1.7 g/dl (3.5-5.0); ALKALINE PHOSPHATASE 102 U/L (33-138); ALT/SGPT 948 U/L (12-78); BILIRUBIN,DIRECT 0.4 mg/dl (0.0-0.3); BILIRUBIN,INDIRECT 0.4 mg/dL (0.0-1.0); BILIRUBIN,TOTAL 0.8 mg/dl (0.0-1.5); BLOOD UREA NITROGEN 14 mg/dl (6-24); CALCIUM 9.1 mg/dl (8.5-10.5); CARBON DIOXIDE-VENOUS 28 mmol/L (22-32); CHLORIDE 101 mmol/l (96-110); CREATININE 1.44 mg/dl (0.60-1.30); GLUCOSE 189 mg/dL (70-110); PHOSPHOROUS 1.8 mg/dl (2.5-4.9); SODIUM 135 mmol/L (135-145); eGFR VALUE FOR BLACK 53 mL/Min
[2017-02-15 05:03] LABS: ANION GAP 10 mmol/L (0-20); AST/SGOT 364 U/L (10-40); MAGNESIUM 2.1 mg/dl (1.8-2.6); POTASSIUM 3.9 mmol/L (3.7-5.1)
[2017-02-15 05:04] LABS: PROTHROMBIN TIME 15.9 SECONDS (9.0-13.6)
[2017-02-15 05:07] LABS: INR 1.3 INR (0.9-1.1); PROTHROMBIN TIME 15.3 SECONDS (9.0-13.6)
[2017-02-15 05:23] LABS: CRRT IONIZED CALCIUM 0.44 mmol/L (0.25-0.35)
[2017-02-15 07:27] LABS: CRRT IONIZED CALCIUM 0.35 mmol/L (0.25-0.35)
[2017-02-15 10:14] LABS: CRRT IONIZED CALCIUM 0.34 mmol/L (0.25-0.35)
[2017-02-15 12:03] LABS: ABG CO2 ARTERIAL 28 mmol/L (21-27); ARTERIAL BLD GAS O2 SATURATION 98 % (95-98); ARTERIAL BLOOD GAS PCO2 41 mmHg (32-45); BICARBONATE 26 mmol/L (21-28); BLOOD GAS BASE EXCESS 2 mM/L (-/+3); PH 7.43 Units (7.35-7.45)
[2017-02-15 12:06] LABS: ARTERIAL PO2 311 mmHg (70-100)
[2017-02-15 12:38] LABS: ANION GAP 13 mmol/L (0-20); BLOOD UREA NITROGEN 13 mg/dl (6-24); CARBON DIOXIDE-VENOUS 26 mmol/L (22-32); CHLORIDE 103 mmol/l (96-110); CREATININE 1.36 mg/dl (0.60-1.30); GLUCOSE 151 mg/dL (70-110); MAGNESIUM 1.7 mg/dl (1.8-2.6); PHOSPHOROUS 2.2 mg/dl (2.5-4.9); POTASSIUM 3.9 mmol/L (3.7-5.1); SODIUM 138 mmol/L (135-145); eGFR VALUE FOR BLACK 57 mL/Min
[2017-02-15 14:23] LABS: BASO % 0.3 % (0-2); EOS % 1.5 % (0-7); EOSINOPHIL ABSOLUTE COUNT 0.2 tho/cmm (0.0-0.7); HCT-HEMATOCRIT 33.7 % (36.0-53.5); HGB-HEMOGLOBIN 11.2 gm/dl (13.5-17.0); IMMATURE GRANULOCYTES PERCENT 3.1 % (0-0.3); LYMPH ABSOLUTE COUNT 0.8 tho/cmm (0.8-4.5); MCH (MEAN CORPUSCULAR HGB) 28.9 pg (28.0-32.0); MCHC MEAN CORPUSCULAR HGB CONC 33.2 % (32.0-36.0); MCV (MEAN CELL VOLUME) 87.1 fl (82.0-96.0); MEAN PLATELET VOLUME 10.6 cmc (9.4-12.4); MONO % 5.8 % (0-12); MONOCYTE ABSOLUTE COUNT 0.8 tho/cmm (0.0-1.2); NEUTROPHIL ABSOLUTE COUNT 10.9 tho/cmm (1.6-8.0); NEUTROPHIL-AUTOMATED 10.9 tho/cmm (1.6-8.0); NEUTROPHILS % 83.3 % (40-80); PLATELET COUNT 165 tho/cmm (150-450); RED BLOOD COUNT 3.87 mil/cmm (4.40-5.70); RED CELL DISTRIBUTION WIDTH 14.1 % (12.4-16.4); WHITE BLOOD COUNT 13.1 tho/cmm (4.0-10.0)
--- NOTE | 2017-02-15 17:56 | NUR ---
02/15: ORDERS TO DC CRRT PER DR MG. SET RINSED BACK TO PT USING 500CC NS BAG PER PROTOCOL. SET DISCONNECTED FROM PT, HD LINE FLUSHED WITH SALINE AND THEN LINES DWELLED WITH HEPARIN- 1.3CC AND 1.7CC, DOUBLE CHECKED WITH JOJO RN. CALCIUM CHLORIDE SHUT OFF AND DISCONNECTED FROM PT PER PROTOCOL. PT TOLERATED PROCEDURE WELL WITH STABLE VS AND NO ISSUES.
[2017-02-16 04:15] LABS: BASO % 0.3 % (0-2); EOS % 1.8 % (0-7); EOSINOPHIL ABSOLUTE COUNT 0.2 tho/cmm (0.0-0.7); HCT-HEMATOCRIT 34.4 % (36.0-53.5); HGB-HEMOGLOBIN 11.4 gm/dl (13.5-17.0); IMMATURE GRANULOCYTES ABSOLUTE 0.42 tho/cmm (0-0.03); IMMATURE GRANULOCYTES PERCENT 3.5 % (0-0.3); LYMPH % 6.7 % (20-45); LYMPH ABSOLUTE COUNT 0.8 tho/cmm (0.8-4.5); MCH (MEAN CORPUSCULAR HGB) 28.9 pg (28.0-32.0); MCHC MEAN CORPUSCULAR HGB CONC 33.1 % (32.0-36.0); MCV (MEAN CELL VOLUME) 87.1 fl (82.0-96.0); MEAN PLATELET VOLUME 10.6 cmc (9.4-12.4); MONO % 6.6 % (0-12); MONOCYTE ABSOLUTE COUNT 0.8 tho/cmm (0.0-1.2); NEUTROPHIL ABSOLUTE COUNT 9.9 tho/cmm (1.6-8.0); NEUTROPHIL-AUTOMATED 9.9 tho/cmm (1.6-8.0); NEUTROPHILS % 81.1 % (40-80); PLATELET COUNT 191 tho/cmm (150-450); RED BLOOD COUNT 3.95 mil/cmm (4.40-5.70); RED CELL DISTRIBUTION WIDTH 14.1 % (12.4-16.4); WHITE BLOOD COUNT 12.2 tho/cmm (4.0-10.0)
[2017-02-16 04:25] LABS: ANION GAP 10 mmol/L (0-20); BLOOD UREA NITROGEN 20 mg/dl (6-24); CALCIUM 8.8 mg/dl (8.5-10.5); CARBON DIOXIDE-VENOUS 28 mmol/L (22-32); CHLORIDE 100 mmol/l (96-110); GLUCOSE 133 mg/dL (70-110); PHOSPHOROUS 3.2 mg/dl (2.5-4.9); POTASSIUM 4.1 mmol/L (3.7-5.1); SODIUM 134 mmol/L (135-145); eGFR VALUE FOR BLACK 30 mL/Min
[2017-02-16 04:30] LABS: CREATININE 2.34 mg/dl (0.60-1.30)
[2017-02-16 04:44] LABS: ABG CO2 ARTERIAL 27 mmol/L (21-27); ARTERIAL BLD GAS O2 SATURATION 95 % (95-98); ARTERIAL BLOOD GAS PCO2 39 mmHg (32-45); BICARBONATE 26 mmol/L (21-28); BLOOD GAS BASE EXCESS 3 mM/L (-/+3); PH 7.45 Units (7.35-7.45)
[2017-02-16 04:45] LABS: ARTERIAL PO2 75 mmHg (70-100)
[2017-02-16 12:36] LABS: ABG CO2 ARTERIAL 27 mmol/L (21-27); ARTERIAL BLD GAS O2 SATURATION 93 % (95-98); ARTERIAL BLOOD GAS PCO2 39 mmHg (32-45); ARTERIAL PO2 80 mmHg (70-100); BICARBONATE 25 mmol/L (21-28); BLOOD GAS BASE EXCESS 2 mM/L (-/+3); PH 7.43 Units (7.35-7.45)
[2017-02-17 04:45] LABS: BASO % 0.3 % (0-2); EOS % 2.3 % (0-7); EOSINOPHIL ABSOLUTE COUNT 0.2 tho/cmm (0.0-0.7); HCT-HEMATOCRIT 30.7 % (36.0-53.5); IMMATURE GRANULOCYTES ABSOLUTE 0.16 tho/cmm (0-0.03); LYMPH ABSOLUTE COUNT 0.5 tho/cmm (0.8-4.5); MCH (MEAN CORPUSCULAR HGB) 28.6 pg (28.0-32.0); MCHC MEAN CORPUSCULAR HGB CONC 32.6 % (32.0-36.0); MCV (MEAN CELL VOLUME) 87.7 fl (82.0-96.0); MEAN PLATELET VOLUME 10.7 cmc (9.4-12.4); MONO % 8.6 % (0-12); MONOCYTE ABSOLUTE COUNT 0.7 tho/cmm (0.0-1.2); NEUTROPHIL ABSOLUTE COUNT 6.5 tho/cmm (1.6-8.0); NEUTROPHIL-AUTOMATED 6.5 tho/cmm (1.6-8.0); NEUTROPHILS % 80.8 % (40-80); PLATELET COUNT 192 tho/cmm (150-450); RED CELL DISTRIBUTION WIDTH 14.6 % (12.4-16.4)
[2017-02-17 05:00] LABS: ALBUMIN 2.1 g/dl (3.5-5.0); BLOOD UREA NITROGEN 28 mg/dl (6-24); CALCIUM 8.1 mg/dl (8.5-10.5); CARBON DIOXIDE-VENOUS 24 mmol/L (22-32); CHLORIDE 98 mmol/l (96-110); CREATININE 2.78 mg/dl (0.60-1.30); PHOSPHOROUS 4.1 mg/dl (2.5-4.9); SODIUM 131 mmol/L (135-145); eGFR VALUE FOR BLACK 24 mL/Min
[2017-02-17 05:11] LABS: ANION GAP 14 mmol/L (0-20); GLUCOSE 243 mg/dL (70-110); POTASSIUM 4.6 mmol/L (3.7-5.1)
[2017-02-17 05:50] LABS: ABG CO2 ARTERIAL 26 mmol/L (21-27); ARTERIAL BLD GAS O2 SATURATION 94 % (95-98); ARTERIAL BLOOD GAS PCO2 37 mmHg (32-45); ARTERIAL PO2 74 mmHg (70-100); BICARBONATE 24 mmol/L (21-28); BLOOD GAS BASE EXCESS 1 mM/L (-/+3); PH 7.43 Units (7.35-7.45)
[2017-02-18 04:33] LABS: ANION GAP 15 mmol/L (0-20); CALCIUM 8.8 mg/dl (8.5-10.5); CARBON DIOXIDE-VENOUS 22 mmol/L (22-32); CHLORIDE 101 mmol/l (96-110); MAGNESIUM 2.5 mg/dl (1.8-2.6); POTASSIUM 4.8 mmol/L (3.7-5.1); SODIUM 133 mmol/L (135-145)
[2017-02-18 04:37] LABS: BLOOD UREA NITROGEN 43 mg/dl (6-24); CREATININE 3.97 mg/dl (0.60-1.30); GLUCOSE 100 mg/dL (70-110); PHOSPHOROUS 6.5 mg/dl (2.5-4.9); eGFR VALUE FOR BLACK 16 mL/Min
[2017-02-19 04:07] LABS: BASO % 0.2 % (0-2); EOS % 1.2 % (0-7); EOSINOPHIL ABSOLUTE COUNT 0.1 tho/cmm (0.0-0.7); HCT-HEMATOCRIT 27.9 % (36.0-53.5); HGB-HEMOGLOBIN 9.2 gm/dl (13.5-17.0); IMMATURE GRANULOCYTES ABSOLUTE 0.03 tho/cmm (0-0.03); IMMATURE GRANULOCYTES PERCENT 0.6 % (0-0.3); LYMPH % 6.9 % (20-45); LYMPH ABSOLUTE COUNT 0.4 tho/cmm (0.8-4.5); MEAN PLATELET VOLUME 10.4 cmc (9.4-12.4); MONOCYTE ABSOLUTE COUNT 0.7 tho/cmm (0.0-1.2); NEUTROPHILS % 78.1 % (40-80); PLATELET COUNT 164 tho/cmm (150-450); RED BLOOD COUNT 3.17 mil/cmm (4.40-5.70); RED CELL DISTRIBUTION WIDTH 14.7 % (12.4-16.4); WHITE BLOOD COUNT 5.1 tho/cmm (4.0-10.0)
[2017-02-19 04:19] LABS: ALB/GLOB RATIO 0.5 (0.8-2.0); ALBUMIN 2.2 g/dl (3.5-5.0); ALKALINE PHOSPHATASE 86 U/L (33-138); ALT/SGPT 27 U/L (12-78); ANION GAP 16 mmol/L (0-20); AST/SGOT 43 U/L (10-40); BILIRUBIN,DIRECT 0.2 mg/dl (0.0-0.3); BILIRUBIN,INDIRECT 0.4 mg/dL (0.0-1.0); BILIRUBIN,TOTAL 0.6 mg/dl (0.0-1.5); BLOOD UREA NITROGEN 34 mg/dl (6-24); CALCIUM 8.5 mg/dl (8.5-10.5); CARBON DIOXIDE-VENOUS 25 mmol/L (22-32); CHLORIDE 100 mmol/l (96-110); CREATININE 3.23 mg/dl (0.60-1.30); MAGNESIUM 2.3 mg/dl (1.8-2.6); PHOSPHOROUS 5.2 mg/dl (2.5-4.9); POTASSIUM 4.5 mmol/L (3.7-5.1); SODIUM 136 mmol/L (135-145); eGFR VALUE FOR BLACK 20 mL/Min
[2017-02-19 05:05] LABS: GLUCOSE 151 mg/dL (70-110)
[2017-02-19 11:26] LABS: ALB/GLOB RATIO 0.6 (0.8-2.0); ALBUMIN 2.3 g/dl (3.5-5.0); BILIRUBIN,DIRECT 0.3 mg/dl (0.0-0.3); BILIRUBIN,INDIRECT 0.2 mg/dL (0.0-1.0); BILIRUBIN,TOTAL 0.5 mg/dl (0.0-1.5)
[2017-02-20 04:15] LABS: BASO % 0.6 % (0-2); EOS % 1.4 % (0-7); EOSINOPHIL ABSOLUTE COUNT 0.1 tho/cmm (0.0-0.7); HCT-HEMATOCRIT 28.2 % (36.0-53.5); HGB-HEMOGLOBIN 9.1 gm/dl (13.5-17.0); IMMATURE GRANULOCYTES ABSOLUTE 0.03 tho/cmm (0-0.03); IMMATURE GRANULOCYTES PERCENT 0.6 % (0-0.3); LYMPH % 7.8 % (20-45); LYMPH ABSOLUTE COUNT 0.4 tho/cmm (0.8-4.5); MCH (MEAN CORPUSCULAR HGB) 28.7 pg (28.0-32.0); MCHC MEAN CORPUSCULAR HGB CONC 32.3 % (32.0-36.0); MEAN PLATELET VOLUME 10.2 cmc (9.4-12.4); MONOCYTE ABSOLUTE COUNT 0.6 tho/cmm (0.0-1.2); NEUTROPHIL ABSOLUTE COUNT 3.8 tho/cmm (1.6-8.0); NEUTROPHIL-AUTOMATED 3.8 tho/cmm (1.6-8.0); NEUTROPHILS % 77.6 % (40-80); PLATELET COUNT 186 tho/cmm (150-450); RED BLOOD COUNT 3.17 mil/cmm (4.40-5.70); WHITE BLOOD COUNT 4.9 tho/cmm (4.0-10.0)
[2017-02-20 04:22] LABS: ALBUMIN 2.3 g/dl (3.5-5.0); ANION GAP 15 mmol/L (0-20); BLOOD UREA NITROGEN 51 mg/dl (6-24); CALCIUM 9.1 mg/dl (8.5-10.5); CARBON DIOXIDE-VENOUS 24 mmol/L (22-32); CHLORIDE 101 mmol/l (96-110); GLUCOSE 153 mg/dL (70-110); POTASSIUM 4.4 mmol/L (3.7-5.1); SODIUM 136 mmol/L (135-145)
[2017-02-20 04:35] LABS: CREATININE 4.28 mg/dl (0.60-1.30); PHOSPHOROUS 6.8 mg/dl (2.5-4.9); eGFR VALUE FOR BLACK 14 mL/Min
[2017-02-21 04:43] LABS: BASO % 0.4 % (0-2); EOS % 1.9 % (0-7); EOSINOPHIL ABSOLUTE COUNT 0.1 tho/cmm (0.0-0.7); HCT-HEMATOCRIT 28.1 % (36.0-53.5); HGB-HEMOGLOBIN 9.1 gm/dl (13.5-17.0); IMMATURE GRANULOCYTES ABSOLUTE 0.02 tho/cmm (0-0.03); IMMATURE GRANULOCYTES PERCENT 0.4 % (0-0.3); LYMPH % 10.8 % (20-45); LYMPH ABSOLUTE COUNT 0.5 tho/cmm (0.8-4.5); MCH (MEAN CORPUSCULAR HGB) 28.9 pg (28.0-32.0); MCHC MEAN CORPUSCULAR HGB CONC 32.4 % (32.0-36.0); MCV (MEAN CELL VOLUME) 89.2 fl (82.0-96.0); MEAN PLATELET VOLUME 10.2 cmc (9.4-12.4); MONO % 9.6 % (0-12); MONOCYTE ABSOLUTE COUNT 0.5 tho/cmm (0.0-1.2); NEUTROPHIL ABSOLUTE COUNT 3.7 tho/cmm (1.6-8.0); NEUTROPHIL-AUTOMATED 3.7 tho/cmm (1.6-8.0); NEUTROPHILS % 76.9 % (40-80); PLATELET COUNT 195 tho/cmm (150-450); RED BLOOD COUNT 3.15 mil/cmm (4.40-5.70); RED CELL DISTRIBUTION WIDTH 15.3 % (12.4-16.4); WHITE BLOOD COUNT 4.8 tho/cmm (4.0-10.0)
[2017-02-21 04:54] LABS: ALBUMIN 2.4 g/dl (3.5-5.0); ANION GAP 17 mmol/L (0-20); BLOOD UREA NITROGEN 62 mg/dl (6-24); CARBON DIOXIDE-VENOUS 25 mmol/L (22-32); CHLORIDE 101 mmol/l (96-110); GLUCOSE 182 mg/dL (70-110); PHOSPHOROUS 6.5 mg/dl (2.5-4.9); POTASSIUM 4.5 mmol/L (3.7-5.1); SODIUM 138 mmol/L (135-145); eGFR VALUE FOR BLACK 13 mL/Min
[2017-02-22 05:25] LABS: ALBUMIN 2.6 g/dl (3.5-5.0); ANION GAP 16 mmol/L (0-20); BLOOD UREA NITROGEN 45 mg/dl (6-24); CALCIUM 8.9 mg/dl (8.5-10.5); CARBON DIOXIDE-VENOUS 26 mmol/L (22-32); CHLORIDE 100 mmol/l (96-110); CREATININE 3.63 mg/dl (0.60-1.30); GLUCOSE 117 mg/dL (70-110); PHOSPHOROUS 4.9 mg/dl (2.5-4.9); POTASSIUM 4.7 mmol/L (3.7-5.1); SODIUM 137 mmol/L (135-145); eGFR VALUE FOR BLACK 17 mL/Min
[2017-02-23 04:45] LABS: ALBUMIN 2.9 g/dl (3.5-5.0); ANION GAP 16 mmol/L (0-20); BLOOD UREA NITROGEN 58 mg/dl (6-24); CALCIUM 9.2 mg/dl (8.5-10.5); CARBON DIOXIDE-VENOUS 25 mmol/L (22-32); CHLORIDE 100 mmol/l (96-110); CREATININE 4.35 mg/dl (0.60-1.30); GLUCOSE 120 mg/dL (70-110); POTASSIUM 5.1 mmol/L (3.7-5.1); SODIUM 136 mmol/L (135-145); eGFR VALUE FOR BLACK 14 mL/Min
[2017-02-23 04:57] LABS: PHOSPHOROUS 7.1 mg/dl (2.5-4.9)
[2017-02-24 05:02] LABS: BASO % 0.8 % (0-2); EOSINOPHIL ABSOLUTE COUNT 0.1 tho/cmm (0.0-0.7); HCT-HEMATOCRIT 30.9 % (36.0-53.5); HGB-HEMOGLOBIN 9.7 gm/dl (13.5-17.0); IMMATURE GRANULOCYTES ABSOLUTE 0.03 tho/cmm (0-0.03); IMMATURE GRANULOCYTES PERCENT 0.6 % (0-0.3); LYMPH % 16.6 % (20-45); LYMPH ABSOLUTE COUNT 0.8 tho/cmm (0.8-4.5); MCH (MEAN CORPUSCULAR HGB) 28.9 pg (28.0-32.0); MCHC MEAN CORPUSCULAR HGB CONC 31.4 % (32.0-36.0); MEAN PLATELET VOLUME 10.2 cmc (9.4-12.4); MONO % 6.5 % (0-12); MONOCYTE ABSOLUTE COUNT 0.3 tho/cmm (0.0-1.2); NEUTROPHIL ABSOLUTE COUNT 3.7 tho/cmm (1.6-8.0); NEUTROPHIL-AUTOMATED 3.7 tho/cmm (1.6-8.0); NEUTROPHILS % 74.5 % (40-80); PLATELET COUNT 203 tho/cmm (150-450); RED BLOOD COUNT 3.36 mil/cmm (4.40-5.70); RED CELL DISTRIBUTION WIDTH 15.3 % (12.4-16.4); WHITE BLOOD COUNT 4.9 tho/cmm (4.0-10.0)
[2017-02-24 05:06] LABS: ANION GAP 12 mmol/L (0-20); BLOOD UREA NITROGEN 43 mg/dl (6-24); CALCIUM 8.6 mg/dl (8.5-10.5); CARBON DIOXIDE-VENOUS 26 mmol/L (22-32); CHLORIDE 100 mmol/l (96-110); CREATININE 3.48 mg/dl (0.60-1.30); GLUCOSE 113 mg/dL (70-110); POTASSIUM 4.8 mmol/L (3.7-5.1); SODIUM 133 mmol/L (135-145); eGFR VALUE FOR BLACK 18 mL/Min
[2017-02-24 05:15] LABS: PHOSPHOROUS 5.3 mg/dl (2.5-4.9)
[2017-02-25 05:01] LABS: ALBUMIN 2.8 g/dl (3.5-5.0); ANION GAP 14 mmol/L (0-20); BLOOD UREA NITROGEN 64 mg/dl (6-24); CALCIUM 8.9 mg/dl (8.5-10.5); CARBON DIOXIDE-VENOUS 25 mmol/L (22-32); CHLORIDE 101 mmol/l (96-110); CREATININE 4.16 mg/dl (0.60-1.30); GLUCOSE 128 mg/dL (70-110); PHOSPHOROUS 5.5 mg/dl (2.5-4.9); POTASSIUM 4.8 mmol/L (3.7-5.1); SODIUM 135 mmol/L (135-145); eGFR VALUE FOR BLACK 15 mL/Min
[2017-02-26 06:24] LABS: ANION GAP 13 mmol/L (0-20); BLOOD UREA NITROGEN 44 mg/dl (6-24); CALCIUM 8.8 mg/dl (8.5-10.5); CARBON DIOXIDE-VENOUS 26 mmol/L (22-32); CHLORIDE 102 mmol/l (96-110); CREATININE 3.37 mg/dl (0.60-1.30); GLUCOSE 94 mg/dL (70-110); PHOSPHOROUS 4.6 mg/dl (2.5-4.9); POTASSIUM 4.6 mmol/L (3.7-5.1); SODIUM 136 mmol/L (135-145); eGFR VALUE FOR BLACK 19 mL/Min
[2017-02-27 05:35] LABS: ALBUMIN 2.9 g/dl (3.5-5.0); ANION GAP 13 mmol/L (0-20); BLOOD UREA NITROGEN 58 mg/dl (6-24); CALCIUM 8.9 mg/dl (8.5-10.5); CARBON DIOXIDE-VENOUS 25 mmol/L (22-32); CHLORIDE 104 mmol/l (96-110); CREATININE 3.73 mg/dl (0.60-1.30); GLUCOSE 119 mg/dL (70-110); PHOSPHOROUS 4.5 mg/dl (2.5-4.9); POTASSIUM 4.5 mmol/L (3.7-5.1); SODIUM 137 mmol/L (135-145); eGFR VALUE FOR BLACK 17 mL/Min
[2017-02-28 05:16] LABS: BASO % 0.7 % (0-2); EOS % 3.1 % (0-7); EOSINOPHIL ABSOLUTE COUNT 0.1 tho/cmm (0.0-0.7); HGB-HEMOGLOBIN 10.1 gm/dl (13.5-17.0); IMMATURE GRANULOCYTES ABSOLUTE 0.02 tho/cmm (0-0.03); IMMATURE GRANULOCYTES PERCENT 0.4 % (0-0.3); LYMPH % 17.8 % (20-45); LYMPH ABSOLUTE COUNT 0.8 tho/cmm (0.8-4.5); MCH (MEAN CORPUSCULAR HGB) 28.9 pg (28.0-32.0); MCHC MEAN CORPUSCULAR HGB CONC 31.6 % (32.0-36.0); MCV (MEAN CELL VOLUME) 91.7 fl (82.0-96.0); MEAN PLATELET VOLUME 10.1 cmc (9.4-12.4); MONO % 5.6 % (0-12); MONOCYTE ABSOLUTE COUNT 0.3 tho/cmm (0.0-1.2); NEUTROPHIL ABSOLUTE COUNT 3.3 tho/cmm (1.6-8.0); NEUTROPHIL-AUTOMATED 3.3 tho/cmm (1.6-8.0); NEUTROPHILS % 72.4 % (40-80); PLATELET COUNT 161 tho/cmm (150-450); RED BLOOD COUNT 3.49 mil/cmm (4.40-5.70); RED CELL DISTRIBUTION WIDTH 16.2 % (12.4-16.4); WHITE BLOOD COUNT 4.5 tho/cmm (4.0-10.0)
[2017-02-28 05:29] LABS: ANION GAP 14 mmol/L (0-20); BLOOD UREA NITROGEN 62 mg/dl (6-24); CALCIUM 9.2 mg/dl (8.5-10.5); CARBON DIOXIDE-VENOUS 24 mmol/L (22-32); CHLORIDE 105 mmol/l (96-110); CREATININE 3.82 mg/dl (0.60-1.30); GLUCOSE 110 mg/dL (70-110); PHOSPHOROUS 4.6 mg/dl (2.5-4.9); POTASSIUM 4.7 mmol/L (3.7-5.1); SODIUM 138 mmol/L (135-145); eGFR VALUE FOR BLACK 16 mL/Min
[2017-02-28 18:47] LABS: URINE APPEARANCE CLEAR; URINE BILIRUBIN NEGATIVE (NEG); URINE BLOOD SMALL (NEG); URINE COLOR YELLOW; URINE GLUCOSE (UA) NEGATIVE (NEG); URINE KETONE NEGATIVE (NEG); URINE LEUKOCYTE ESTERASE POSITIVE (NEG); URINE NITRITE NEGATIVE (NEG); URINE PROTEIN NEGATIVE (NEG)
[2017-02-28 18:50] LABS: URINE EPITHELIAL CELLS 0 /[HPF] (0-10); URINE RBC 0 /[HPF] (0-5)
[2017-02-28 18:55] LABS: URINE CREATININE-RANDOM 44 mg/dl (30-125); URINE SODIUM-RANDOM 22 mmol/L (20-110)
[2017-03-01 04:52] LABS: BASO % 0.7 % (0-2); EOS % 3.2 % (0-7); EOSINOPHIL ABSOLUTE COUNT 0.1 tho/cmm (0.0-0.7); HCT-HEMATOCRIT 31.2 % (36.0-53.5); IMMATURE GRANULOCYTES ABSOLUTE 0.01 tho/cmm (0-0.03); IMMATURE GRANULOCYTES PERCENT 0.2 % (0-0.3); LYMPH % 24.8 % (20-45); MCH (MEAN CORPUSCULAR HGB) 29.2 pg (28.0-32.0); MCHC MEAN CORPUSCULAR HGB CONC 32.1 % (32.0-36.0); MCV (MEAN CELL VOLUME) 91.2 fl (82.0-96.0); MEAN PLATELET VOLUME 10.3 cmc (9.4-12.4); MONO % 8.2 % (0-12); MONOCYTE ABSOLUTE COUNT 0.3 tho/cmm (0.0-1.2); NEUTROPHIL ABSOLUTE COUNT 2.5 tho/cmm (1.6-8.0); NEUTROPHIL-AUTOMATED 2.5 tho/cmm (1.6-8.0); NEUTROPHILS % 62.9 % (40-80); PLATELET COUNT 142 tho/cmm (150-450); RED BLOOD COUNT 3.42 mil/cmm (4.40-5.70)
[2017-03-01 05:02] LABS: ANION GAP 12 mmol/L (0-20); BLOOD UREA NITROGEN 32 mg/dl (6-24); CALCIUM 8.4 mg/dl (8.5-10.5); CARBON DIOXIDE-VENOUS 26 mmol/L (22-32); CHLORIDE 102 mmol/l (96-110); CREATININE 2.48 mg/dl (0.60-1.30); GLUCOSE 90 mg/dL (70-110); POTASSIUM 4.2 mmol/L (3.7-5.1); SODIUM 136 mmol/L (135-145); eGFR VALUE FOR BLACK 28 mL/Min
[2017-03-02 06:01] LABS: ALBUMIN 2.8 g/dl (3.5-5.0); ANION GAP 12 mmol/L (0-20); BLOOD UREA NITROGEN 37 mg/dl (6-24); CALCIUM 8.6 mg/dl (8.5-10.5); CARBON DIOXIDE-VENOUS 27 mmol/L (22-32); CHLORIDE 104 mmol/l (96-110); GLUCOSE 128 mg/dL (70-110); PHOSPHOROUS 3.3 mg/dl (2.5-4.9); POTASSIUM 4.5 mmol/L (3.7-5.1); SODIUM 138 mmol/L (135-145); eGFR VALUE FOR BLACK 23 mL/Min
[2017-03-03 04:20] LABS: ALBUMIN 2.9 g/dl (3.5-5.0); ANION GAP 13 mmol/L (0-20); BLOOD UREA NITROGEN 43 mg/dl (6-24); CALCIUM 8.5 mg/dl (8.5-10.5); CARBON DIOXIDE-VENOUS 25 mmol/L (22-32); CHLORIDE 105 mmol/l (96-110); CREATININE 2.95 mg/dl (0.60-1.30); GLUCOSE 118 mg/dL (70-110); PHOSPHOROUS 2.8 mg/dl (2.5-4.9); POTASSIUM 4.4 mmol/L (3.7-5.1); SODIUM 139 mmol/L (135-145); eGFR VALUE FOR BLACK 22 mL/Min
[2017-03-03 17:47] LABS: URINE APPEARANCE CLEAR; URINE BILIRUBIN NEGATIVE (NEG); URINE BLOOD NEGATIVE (NEG); URINE COLOR YELLOW; URINE GLUCOSE (UA) NEGATIVE (NEG); URINE KETONE NEGATIVE (NEG); URINE LEUKOCYTE ESTERASE NEGATIVE (NEG); URINE NITRITE NEGATIVE (NEG); URINE PROTEIN NEGATIVE (NEG)
[2017-03-04 06:09] LABS: BASO % 0.3 % (0-2); EOSINOPHIL ABSOLUTE COUNT 0.2 tho/cmm (0.0-0.7); HCT-HEMATOCRIT 32.8 % (36.0-53.5); HGB-HEMOGLOBIN 10.3 gm/dl (13.5-17.0); IMMATURE GRANULOCYTES ABSOLUTE 0.02 tho/cmm (0-0.03); IMMATURE GRANULOCYTES PERCENT 0.3 % (0-0.3); LYMPH % 12.5 % (20-45); MCH (MEAN CORPUSCULAR HGB) 28.8 pg (28.0-32.0); MCHC MEAN CORPUSCULAR HGB CONC 31.4 % (32.0-36.0); MCV (MEAN CELL VOLUME) 91.6 fl (82.0-96.0); MEAN PLATELET VOLUME 10.1 cmc (9.4-12.4); MONO % 6.6 % (0-12); MONOCYTE ABSOLUTE COUNT 0.5 tho/cmm (0.0-1.2); NEUTROPHILS % 78.3 % (40-80); PLATELET COUNT 139 tho/cmm (150-450); RED BLOOD COUNT 3.58 mil/cmm (4.40-5.70); RED CELL DISTRIBUTION WIDTH 15.8 % (12.4-16.4); WHITE BLOOD COUNT 7.6 tho/cmm (4.0-10.0)
[2017-03-04 06:24] LABS: ALB/GLOB RATIO 0.9 (0.8-2.0); ALBUMIN 3.2 g/dl (3.5-5.0); ALKALINE PHOSPHATASE 102 U/L (33-138); ALT/SGPT 19 U/L (12-78); ANION GAP 15 mmol/L (0-20); AST/SGOT 14 U/L (10-40); BILIRUBIN,TOTAL 0.6 mg/dl (0.0-1.5); BLOOD UREA NITROGEN 47 mg/dl (6-24); CALCIUM 9.1 mg/dl (8.5-10.5); CARBON DIOXIDE-VENOUS 25 mmol/L (22-32); CHLORIDE 106 mmol/l (96-110); GLUCOSE 135 mg/dL (70-110); POTASSIUM 4.6 mmol/L (3.7-5.1); SODIUM 141 mmol/L (135-145); eGFR VALUE FOR BLACK 22 mL/Min
[2017-03-04] MEDS ORDERED: LOVENOX30 MG/0.1 SC (13:15)
[2017-03-04] MEDS ORDERED: LIPITOR20 M1 PO (13:16)
[2017-03-04] MEDS ORDERED: COREG3.125 M1 PO (13:16)
[2017-03-04] MEDS ORDERED: AMIODARONE HCL200 M1 PO (13:16)
[2017-03-04] MEDS ORDERED: TYLENOL325 M2 PO (13:18)
[2017-03-04] MEDS ORDERED: NORCO 5-325 TA1 EACH PO (13:19)
[2017-03-04] MEDS ORDERED: LASIX40 M1 PO (13:20)
[2017-03-04] MEDS ORDERED: BACITRACIN28.4 G2 TP (13:21)
[2017-03-04] MEDS ORDERED: ISOPTO TEARS15 M1 OP (13:21)
[2017-03-04] MEDS ORDERED: MAG-AL PLUS SUS30 M1 PO (13:22)
[2017-03-04] MEDS ORDERED: COLACE100 M1 PO (13:22)
[2017-03-04] MEDS ORDERED: PROTONIX40 M2 PO (13:23)
[2017-03-04] MEDS ORDERED: NOVOLOG100 UNITS/ SC (13:24)
[2017-05-01] MEDS ORDERED: TOPROL XL50 M1 PO (13:56)
[2017-05-01] MEDS ORDERED: METAMUCIL SUGA283 GM (13:57)
[2017-05-05] MEDS ORDERED: NORCO 5-325 TA1 EACH PO (12:09)
== END 2017-03-04 15:00 | DRG 853 ==
LOC: EDMED 16:08 → EMR2 21:39 → 5WD 22:24 → PCUA 02-10 00:45 → CCU 02-10 11:13 → PCUB 02-19 16:00
PROVIDERS: Emergency Medicine; Internal Medicine; Internal Medicine Cardiovascular Disease; Internal Medicine Critical Care Medicine; Internal Medicine Nephrology; Registered Nurse; ADMIT Hospitalist
PROC: 5A1955Z Respiratory Ventilation, Greater than 96 Consecutive Hours (ICD-10-PCS; 2017-02-10)
PROC: 5A09357 Assistance with Respiratory Ventilation, Less than 24 Consecutive Hours, Continuous Positive Airway Pressure (ICD-10-PCS; 2017-02-10)
PROC: 0BH17EZ Insertion of Endotracheal Airway into Trachea, Via Natural or Artificial Opening (ICD-10-PCS; 2017-02-10)
PROC: 5A02210 Assistance with Cardiac Output using Balloon Pump, Continuous (ICD-10-PCS; 2017-02-11)
PROC: 4A023N6 Measurement of Cardiac Sampling and Pressure, Right Heart, Percutaneous Approach (ICD-10-PCS; 2017-02-11)
PROC: B2141ZZ Fluoroscopy of Right Heart using Low Osmolar Contrast (ICD-10-PCS; 2017-02-11)
PROC: 02HV33Z Insertion of Infusion Device into Superior Vena Cava, Percutaneous Approach (ICD-10-PCS; principal; 2017-02-12)
PROC: 06HN33Z Insertion of Infusion Device into Left Femoral Vein, Percutaneous Approach (ICD-10-PCS; 2017-02-12)
PROC: B54CZZA Ultrasonography of Left Lower Extremity Veins, Guidance (ICD-10-PCS; 2017-02-12)
PROC: 02P Heart and Great Vessels, Removal (ICD-10-PCS; 2017-02-13)
PROC: 5A1D60Z (ICD-10-PCS; 2017-02-16)
PROC: 02H633Z Insertion of Infusion Device into Right Atrium, Percutaneous Approach (ICD-10-PCS; 2017-02-16)
PROC: B214YZZ Fluoroscopy of Right Heart using Other Contrast (ICD-10-PCS; 2017-02-16)
DX: A41.51 Sepsis due to Escherichia coli [E. coli] (principal); R65.21 Severe sepsis with septic shock; J96.01 Acute respiratory failure with hypoxia; I21.4 Non-ST elevation (NSTEMI) myocardial infarction; R57.0 Cardiogenic shock; I50.1 Left ventricular failure, unspecified; K72.00 Acute and subacute hepatic failure without coma; I50.21 Acute systolic (congestive) heart failure; E87.2 Acidosis; R13.10 Dysphagia, unspecified; I46.8 Cardiac arrest due to other underlying condition; N39.0 Urinary tract infection, site not specified; N12 Tubulo-interstitial nephritis, not specified as acute or chronic; N17.9 Acute kidney failure, unspecified; Z68.41 Body mass index [BMI] 40.0-44.9, adult; E44.1 Mild protein-calorie malnutrition; I13.0 Hypertensive heart and chronic kidney disease with heart failure and stage 1 through stage 4 chronic kidney disease, or unspecified chronic kidney disease; E87.1 Hypo-osmolality and hyponatremia; B96.20 Unspecified Escherichia coli [E. coli] as the cause of diseases classified elsewhere; D64.9 Anemia, unspecified; K21.9 Gastro-esophageal reflux disease without esophagitis; E78.5 Hyperlipidemia, unspecified; I48.91 Unspecified atrial fibrillation; I25.5 Ischemic cardiomyopathy; K59.00 Constipation, unspecified; M19.90 Unspecified osteoarthritis, unspecified site; F41.9 Anxiety disorder, unspecified; I87.2 Venous insufficiency (chronic) (peripheral); Z72.0 Tobacco use; Z79.82 Long term (current) use of aspirin; Z96.653 Presence of artificial knee joint, bilateral; E11.22 Type 2 diabetes mellitus with diabetic chronic kidney disease; N18.3 Chronic kidney disease, stage 3 (moderate); R79.89 Other specified abnormal findings of blood chemistry; R19.5 Other fecal abnormalities; E11.51 Type 2 diabetes mellitus with diabetic peripheral angiopathy without gangrene; E11.36 Type 2 diabetes mellitus with diabetic cataract; K80.20 Calculus of gallbladder without cholecystitis without obstruction; K76.0 Fatty (change of) liver, not elsewhere classified; E87.70 Fluid overload, unspecified; Z79.4 Long term (current) use of insulin; R16.0 Hepatomegaly, not elsewhere classified; E66.01 Morbid (severe) obesity due to excess calories; R07.89 Other chest pain; N40.1 Benign prostatic hyperplasia with lower urinary tract symptoms; R33.8 Other retention of urine; Z99.2 Dependence on renal dialysis; E79.0 Hyperuricemia without signs of inflammatory arthritis and tophaceous disease
CPT/HCPCS: A4725; A4913; A9540; A9558; C1751; C1752; C1758; C1769; C1894; C8924; C8929; C9113; G8996-GN-CH; G8996-GN-CJ; G8997-GN-CH; G8997-GN-CJ; G8998-GN-CJ; J0282; J0610; J0690; J0696; J0885; J1250; J1265; J1644; J1650; J1815; J1940; J1956; J2250; J2270; J2405; J2543; J2997; J3010; J3475; J3480; J7030; J7040; J7050; L4396; P9047